=== PATIENT | male | born 1950 | race Caucasian/White ===

== ENCOUNTER 2020-04-01 18:06 | Emergency (ER) | payer OTHER ==
[~2020-04-01] VITALS: Ht 172.7 cm; Wt 90.7 kg
[2020-04-01 18:10] VITALS: BP 0/0
== END 2020-04-01 18:10 ==
LOC: ER 18:06 → EDBD 18:06 → ER 18:10
DX: I46.9 Cardiac arrest, cause unspecified (principal); E11.9 Type 2 diabetes mellitus without complications; I10 Essential (primary) hypertension